=== PATIENT | male | born 1960 | race Caucasian/White ===

== ENCOUNTER 2017-07-24 02:11 | Inpatient (IN) | payer SELFPAY ==
[~2017-07-24] VITALS: Ht 177.8 cm; Wt 119.9 kg
[2017-07-24] MEDS ORDERED: ALBUTEROL (0.083%) 2.5MG/3ML NEB HHN STA (02:40)
[2017-07-24] MEDS ORDERED: METHYLPREDNISOLONE SOD SUCC 125 MG/2 ML VIAL IV STA (02:40)
[2017-07-24 03:02] LABS: BASOPHILS % 0.6 % (0.0-2.0); EOSINOPHILS % 0.2 % (0.0-5.0); HEMATOCRIT. 42.6 % (42.0-52.0); HEMOGLOBIN. 14.6 g/dL (14.0-18.0); LYMPHOCYTES % 21.1 % (20.0-50.0); MEAN CORPUSCULAR HEMOGLOBIN 32.3 pg (28.0-32.0); MEAN CORPUSCULAR VOLUME 94.5 fL (80.0-94.0); MEAN PLATELET VOLUME 10.1 fl (7.4-10.4); MONOCYTES % 10.5 % (2.0-8.0); NEUTROPHILS % 67.6 % (40.0-76.0); PLATELET 111 x1000/uL (130-400); RED BLOOD CELL COUNT 4.51 mill/uL (4.7-6.1); RED CELL DISTRIBUTION WIDTH 13.8 % (11.6-14.6)
[2017-07-24 03:11] LABS: CARBON DIOXIDE 25 mEq/L (21-32); CHLORIDE 108 mEq/L (98-107); TROPONIN I < 0.02 ng/mL (0.00-0.04)
[2017-07-24] MEDS ORDERED: CLONIDINE 0.1MG TABLET PO PRN (06:30)
[2017-07-24] MEDS ORDERED: LORAZEPAM 0.5MG TABLET PO PRN (06:30)
[2017-07-24] MEDS ORDERED: GUAIFENESIN 200MG/10ML SUGAR FREE UDC PO PRN (06:30)
[2017-07-24] MEDS ORDERED: NA PHOS,M-B/NA PHOS,DI-BA ENEMA 118ML PR PRN (06:30)
[2017-07-24] MEDS ORDERED: MAGNESIUM/ALUMINUM HYDROXIDE/SIMETHICONE 30ML UDC PO PRN (06:30)
[2017-07-24] MEDS ORDERED: DIPHENHYDRAMINE 50MG/ML VIAL IV PRN (06:30)
[2017-07-24] MEDS ORDERED: ONDANSETRON HCL 4MG/2ML VIAL IV PRN (06:30)
[2017-07-24] MEDS ORDERED: DOCUSATE SODIUM 100MG CAPSULE PO PRN (06:30)
[2017-07-24] MEDS ORDERED: ACETAMINOPHEN 325MG TABLET PO PRN (06:30)
[2017-07-24] MEDS ORDERED: IPRATROPIUM/ALBUTEROL 0.5-3(2.5)MG/3ML NEB INH PRN (06:30)
[2017-07-24 08:00] VITALS: BP 113/49
[2017-07-24] MEDS ORDERED: ENOXAPARIN 40MG/0.4ML SYR SUBCUT SCH (09:00)
[2017-07-24 09:19] VITALS: BP 113/49
[2017-07-24] MEDS ORDERED: BENA40TA3 PO (09:38)
[2017-07-24] MEDS ORDERED: HYDR-2510 PO (09:38)
[2017-07-24] MEDS: ASPIRIN 81MG EC TABLET PO SCH (10:25)
[2017-07-24] MEDS: MORPHINE SULFATE 2 MG/ML CPJ (NOT FOR IM USE) IV PRN ×2 (10:25→18:09)
[2017-07-24] MEDS ORDERED: INFLUENZA VIRUS VACCINE 0.5ML SYR IM ONE (11:00)
[2017-07-24] MEDS ORDERED: LEVOFLOXACIN 500MG PREMIX 100 ML IV SCH (11:00)
[2017-07-24] MEDS ORDERED: PNEUMOC 13-VAL CONJ-DIP CRM/PF 0.5 ML DISP.SYRIN IM ONE (11:30)
[2017-07-24 12:00] VITALS: BP 121/64
[2017-07-24] MEDS: METHYLPREDNISOLONE SOD SUCC 125 MG/2 ML VIAL IV SCH ×2 (12:02→18:08)
[2017-07-24] MEDS: HYDROCODONE/ACETAMINOPHEN 5/325MG TABLET PO PRN ×2 (15:21→21:51)
[2017-07-24] MEDS: NICOTINE 21MG PATCH TD SCH (15:22)
[2017-07-24] MEDS: ENOXAPARIN 30MG/0.3ML SYR SUBCUT SCH ×2 (15:23→21:16)
[2017-07-24 16:00] VITALS: BP 128/57
[2017-07-24 20:00] VITALS: BP 169/80
[2017-07-24] MEDS ORDERED: HYDROCHLOROTHIAZIDE 50MG TABLET PO NR (21:30)
[2017-07-24] MEDS ORDERED: BENAZEPRIL 20MG TABLET PO NR (21:30)
[2017-07-24 21:50] VITALS: BP 163/89
[2017-07-24 22:34] LABS: *AMPHETAMINES SCREEN URINE NEGATIVE (NEGATIVE); *BARBITURATES SCREEN URINE NEGATIVE (NEGATIVE); *BENZODIAZEPINES SCREEN URINE NEGATIVE (NEGATIVE); *COCAINE SCREEN URINE NEGATIVE (NEGATIVE); CANNABINOID URINE SCREEN NEGATIVE (NEGATIVE); METHADONE URINE SCREEN NEGATIVE (NEGATIVE); OPIATES URINE SCREEN PRESUMTIVE POSITIVE (NEGATIVE); PHENCYCLIDINE URINE SCREEN NEGATIVE (NEGATIVE)
[2017-07-25 00:09] VITALS: BP 157/84
[2017-07-25] MEDS: METHYLPREDNISOLONE SOD SUCC 125 MG/2 ML VIAL IV SCH ×2 (00:17→05:38)
[2017-07-25] MEDS: MORPHINE SULFATE 2 MG/ML CPJ (NOT FOR IM USE) IV PRN (00:18)
[2017-07-25] MEDS: IPRATROPIUM/ALBUTEROL 0.5-3(2.5)MG/3ML NEB HHN SCH ×4 (00:35→11:57)
[2017-07-25 04:00] VITALS: BP 142/78
[2017-07-25 07:02] LABS: HEMATOCRIT. 42.9 % (42.0-52.0); HEMOGLOBIN. 14.5 g/dL (14.0-18.0); MEAN CORPUSCULAR VOLUME 94.7 fL (80.0-94.0); MEAN PLATELET VOLUME 10.7 fl (7.4-10.4); MONOCYTES % 5.5 % (2.0-8.0); NEUTROPHILS % 80.5 % (40.0-76.0); PLATELET 114 x1000/uL (130-400); RED BLOOD CELL COUNT 4.53 mill/uL (4.7-6.1); RED CELL DISTRIBUTION WIDTH 13.6 % (11.6-14.6)
[2017-07-25 07:33] LABS: CHLORIDE 105 mEq/L (98-107)
[2017-07-25 07:55] LABS: CARBON DIOXIDE 25 mEq/L (21-32); HDL CHOLESTEROL 81 mg/dL (40-59); LDL CHOLESTEROL 78 mg/dL (5-100); T4 FREE 0.89 ng/dL (0.76-1.46)
[2017-07-25 08:00] VITALS: BP 162/84
[2017-07-25] MEDS: ASPIRIN 81MG EC TABLET PO SCH (08:30)
[2017-07-25] MEDS: ENOXAPARIN 30MG/0.3ML SYR SUBCUT SCH (08:33)
[2017-07-25] MEDS: NICOTINE 21MG PATCH TD SCH (08:33)
[2017-07-25] MEDS ORDERED: HYDROCHLOROTHIAZIDE 50MG TABLET PO SCH (09:00)
[2017-07-25] MEDS ORDERED: BENAZEPRIL 20MG TABLET PO SCH (09:00)
[2017-07-25 11:08] VITALS: BP 162/84
[2017-07-25 11:13] VITALS: BP 158/83
== END 2017-07-25 13:55 | disposition home or self-care (01) | DRG 140 ==
LOC: ER 02:11 → 5WST 05:50 → ENRESERV 07:05
PROVIDERS: ADMIT Internal Medicine; ATTEND Internal Medicine
DX: J44.1 Chronic obstructive pulmonary disease with (acute) exacerbation (principal); J18.9 Pneumonia, unspecified organism; I10 Essential (primary) hypertension; R06.03 Acute respiratory distress; G47.33 Obstructive sleep apnea (adult) (pediatric); F17.210 Nicotine dependence, cigarettes, uncomplicated; J44.0 Chronic obstructive pulmonary disease with (acute) lower respiratory infection; Z79.899 Other long term (current) drug therapy
CPT/HCPCS: 36415; 71010; 80048; 80053; 80061; 80305; 83880; 84439; 84443; 84484; 85025; 85610; 90670; 90686; 93005; 94640; 96374; 99285; J1650; J1956; J2270; J2930; J7040; J7611; J7620